=== PATIENT | female | born 1985 | race Caucasian/White ===

== ENCOUNTER → 2017-10-01 | Emergency (ER) | payer OTHER, BC ==
[~2017-10-01] VITALS: Ht 167.6 cm; Wt 113.4 kg
[~2017-10-01] MED LIST: AUGMENTIN 875-1 EACH PO; LEVOTHYROXINE25 MCG PO; NORCO 5-325 TA1 EACH PO; ZOVIRAX200 MG PO
== END ==
LOC: ED 07:21
PROC: 0HQMXZZ Repair Right Foot Skin, External Approach (ICD-10-PCS; principal; 2017-10-01)
DX: S92.534A Nondisplaced fracture of distal phalanx of right lesser toe(s), initial encounter for closed fracture (principal); S91.214A Laceration without foreign body of right lesser toe(s) with damage to nail, initial encounter; W22.8XXA Striking against or struck by other objects, initial encounter; E03.9 Hypothyroidism, unspecified; Z88.2 Allergy status to sulfonamides; Z79.899 Other long term (current) drug therapy
CPT/HCPCS: 12001; 73630; 90471; 90715; 99283

== ENCOUNTER 2021-07-12 09:43 | Emergency (ER) | payer OTHER, BC ==
[~2021-07-12] VITALS: Ht 167.6 cm; Wt 113.4 kg
== END 2021-07-12 10:43 | disposition home or self-care (01) ==
LOC: ED 09:43
DX: S70.351A Superficial foreign body, right thigh, initial encounter (principal); I10 Essential (primary) hypertension; E03.9 Hypothyroidism, unspecified; Z88.2 Allergy status to sulfonamides; Z79.899 Other long term (current) drug therapy; W45.8XXA Other foreign body or object entering through skin, initial encounter; Z23 Encounter for immunization
CPT/HCPCS: 90471; 90715; 99283-25; A9270